=== PATIENT | female | born 1995 | race Caucasian/White ===

== ENCOUNTER 2022-01-07 12:40 | Outpatient (CLI) | payer MEDICAID, SELFPAY ==
[2022-01-07 13:00] VITALS: BMI 25.7
[2022-01-07 13:25] VITALS: BP 119/79; PULSE 78
[2022-01-07 13:29] VITALS: RESP 17
[2022-01-07 13:44] VITALS: TEMP 36.1
[2022-01-07 13:58] LABS: Bilirubin Urine Neg (Negative); Blood Urine Neg (Negative); Glucose Urine UA Norm (Normal); Ketones Urine Negative (Negative); Nitrate Urine Negative (Negative); Protein Urine Neg (Negative); Urine Appearance Hazy (CLEAR); Urine Color Yellow (Yellow); Urobilinogen Urine Norm (Negative); pH Urine 7 (5-7)
[2022-01-07 13:59] LABS: Add Urine Culture? No; Add Urine Microscopic? YES; Bacteria Urine 1+ /hpf; Leukocyte Esterase Urine 2+ (Negative); RBC Urine 0-4 /hpf (0-2); WBC Urine 0-4 /hpf (0-5)
[2022-01-07 15:00] LABS: Bilirubin Urine Neg (Negative); Blood Urine Neg (Negative); Glucose Urine UA Norm (Normal); Ketones Urine Negative (Negative); Leukocyte Esterase Urine Negative (Negative); Nitrate Urine Negative (Negative); Protein Urine Neg (Negative); Specific Gravity, Urine 1.015 (1.005-1.030); Urine Appearance Clear (CLEAR); Urine Color Yellow (Yellow); Urobilinogen Urine Norm (Negative); pH Urine 7 (5-7)
[2022-01-07 15:06] LABS: Add Urine Culture? No; Squamous Epithelial Cell Urine 0-4 /hpf (0-5)
[2022-01-07 15:30] VITALS: BP 119/79; PULSE 78; RESP 18; TEMP 36.1
== END 2022-01-07 15:31 | disposition home or self-care (01) ==
LOC: OPOB 12:45 → OBGYN 12:46
PROVIDERS: Visit Provider Obstetrics & Gynecology
DX: O46.90 Antepartum hemorrhage, unspecified, unspecified trimester (principal); Z3A.00 Weeks of gestation of pregnancy not specified
CPT/HCPCS: 59025; 81001; 99211

== ENCOUNTER → 2022-02-11 16:36 | Outpatient (BNVA) | payer BC, MEDICAID, SELFPAY | PROVIDERS: Visit Provider Obstetrics & Gynecology | DX: Z34.90 Encounter for supervision of normal pregnancy, unspecified, unspecified trimester (principal) | CPT/HCPCS: 80307; 84315; 84443 ==

== ENCOUNTER → 2022-02-16 08:10 | Outpatient (BNVA) | payer BC, MEDICAID, SELFPAY | PROVIDERS: Visit Provider Obstetrics & Gynecology | DX: O09.899 Supervision of other high risk pregnancies, unspecified trimester (principal); Z3A.00 Weeks of gestation of pregnancy not specified | CPT/HCPCS: 81000; 87081 ==

== ENCOUNTER 2022-02-21 04:47 | Outpatient (CLI) | payer BC, MEDICAID, SELFPAY ==
[2022-02-21] VITALS (33 sets, daily range): BP systolic 111–130; BP diastolic 73–87; PULSE 54–96; RESP 15; TEMP 35.9; O2SAT 83–100
[2022-02-21] MEDS: lactated ringers 1,000 ML 999 ML IV (05:55)
[2022-02-21] MEDS: HYDROcodone-acetaminophen 5-325 mg Tablet 1 TAB PO (05:56)
[2022-02-21] MEDS: pantoprazole 40 mg SDV 20 MG IVP (05:56)
[2022-02-21 05:59] LABS: Basophils % 0.4 %; Eosinophils # 0.1 10^3/uL (0.0-0.8); Eosinophils % 1.3 %; Hematocrit 31.1 % (37.0-47.0); Hemoglobin 9.9 g/dL (11.5-15.3); Lymphocytes # 2.4 10^3/uL (0.8-4.8); Lymphocytes % 29.8 %; Mean Corpuscular HGB Conc 31.8 g/dL (30.0-36.0); Mean Corpuscular Hemoglobin 27.7 pg (28.0-34.0); Mean Corpuscular Volume 86.9 fl (81-99); Mean Platelet Volume 11.5 fL (7.4-10.4); Monocytes # 0.8 10^3/uL (0.2-0.9); Monocytes % 9.8 %; Neutrophils # 4.66 10^3/uL (1.8-7.7); Neutrophils % 58.1 %; Nucleated Red Blood Cells % 0 %; Platelet Count 254 10^3/cmm (130-400); Red Blood Count 3.58 10^6/uL (4.1-5.3); Red Cell Distribution Width 13.2 % (12.1-15.1)
[2022-02-21 06:14] LABS: Add Urine Culture? No; Add Urine Microscopic? YES; Bacteria Urine TRACE /hpf; Bilirubin Urine Neg (Negative); Blood Urine Neg (Negative); Glucose Urine UA Norm (Normal); Ketones Urine Negative (Negative); Leukocyte Esterase Urine Negative (Negative); Mucus Urine TRACE /hpf; Nitrate Urine Negative (Negative); Protein Urine Trace (Negative); RBC Urine 0-4 /hpf (0-2); Squamous Epithelial Cell Urine 0-4 /hpf (0-5); Urine Appearance Clear (CLEAR); Urine Color Yellow (Yellow); Urobilinogen Urine Neg (Negative); WBC Urine 0-4 /hpf (0-5); pH Urine 5 (5-7)
[2022-02-21 06:17] LABS: INR 0.93 (0.8-1.2); Partial Thromboplastin Time 23.6 SECONDS (23.9-36.7)
[2022-02-21 06:18] LABS: Platelet Count 254 10^3/cmm (130-400)
[2022-02-21 06:22] LABS: Fibrinogen 320 mg/dL (174-498)
[2022-02-21 06:26] LABS: Urine Creatinine 160 mg/dL (28-217); Urine Protein Random 13 mg/dL
[2022-02-21 06:26] LABS: D Dimer 2.07 ug/mIFEU (0-0.59)
[2022-02-21 06:27] LABS: UPRO/UCREAT Ratio 0.08 mg/mg CR
[2022-02-21 06:27] LABS: Alanine Aminotransferase 7 U/L (0-33); Albumin Level 3.2 g/dL (3.5-5.2); Alkaline Phosphatase 119 IU/L (35-105); Anion Gap 15.7 (5-19); Aspartate Amino Transferase 17 U/L (0-32); Blood Urea Nitrogen 8 mg/dL (6-20); Calcium 8.3 mg/dL (8.5-10.5); Carbon Dioxide 22 mmol/L (22-29); Chloride 105 mmol/L (98-107); Globulin 2.9 g/dL (1.3-4.6); Glomerular Filtration Rate 151.6 mL/min (90-130); Glucose 73 mg/dL (65-115); Osmolality Calculated 285 mOsm/kg (285-295); Potassium 3.7 mmol/L (3.5-5.1); Sodium 139 mmol/L (136-145); Total Bilirubin 0.2 mg/dL (0.15-1.2); Total Protein 6.1 g/dL (6.6-8.7); Uric Acid 4.3 mg/dL (2.4-5.7)
== END 2022-02-21 07:20 | disposition home or self-care (01) ==
LOC: OPOB 04:56 → OBGYN 04:57
PROVIDERS: Visit Provider Obstetrics & Gynecology
DX: O26.899 Other specified pregnancy related conditions, unspecified trimester (principal); Z3A.00 Weeks of gestation of pregnancy not specified; R51.9 Headache, unspecified; R12 Heartburn; G47.9 Sleep disorder, unspecified
CPT/HCPCS: 36415; 59025; 80053; 81001; 82570; 84156; 84550; 85025; 85049; 85378; 85384; 85610; 85730; 99211; C9113

== ENCOUNTER 2022-02-28 10:09 | Outpatient (CLI) | payer BC, MEDICAID, SELFPAY ==
[2022-02-28] VITALS (7 sets, daily range): BP systolic 110–120; BP diastolic 72–78; PULSE 71–88; RESP 18; TEMP 36.1–36.3; BMI 27.4
[2022-02-28 10:57] LABS: Actim Prom Negative
== END 2022-02-28 11:20 | disposition home or self-care (01) ==
LOC: OPOB 10:11 → OBGYN 10:12
PROVIDERS: Visit Provider Obstetrics & Gynecology
DX: O26.899 Other specified pregnancy related conditions, unspecified trimester (principal); Z3A.00 Weeks of gestation of pregnancy not specified; N89.8 Other specified noninflammatory disorders of vagina
CPT/HCPCS: 36415; 59025; 84112; 84315; 99211

== ENCOUNTER 2022-03-08 21:25 | Inpatient (IN) | payer BC, MEDICAID, SELFPAY ==
[2022-03-08] VITALS (7 sets, daily range): BP systolic 123–143; BP diastolic 79–90; PULSE 66–80; RESP 16; BMI 27.4
[2022-03-08 20:48] LABS: Basophils % 0.3 %; Eosinophils # 0.1 10^3/uL (0.0-0.8); Eosinophils % 0.4 %; Hematocrit 35.5 % (37.0-47.0); Hemoglobin 11.2 g/dL (11.5-15.3); Lymphocytes # 2.4 10^3/uL (0.8-4.8); Lymphocytes % 19.9 %; Mean Corpuscular HGB Conc 31.5 g/dL (30.0-36.0); Mean Corpuscular Hemoglobin 27.2 pg (28.0-34.0); Mean Corpuscular Volume 86.2 fl (81-99); Mean Platelet Volume 11.8 fL (7.4-10.4); Neutrophils # 8.43 10^3/uL (1.8-7.7); Neutrophils % 70.8 %; Nucleated Red Blood Cells % 0 %; Platelet Count 279 10^3/cmm (130-400); Red Blood Count 4.12 10^6/uL (4.1-5.3); Red Cell Distribution Width 13.3 % (12.1-15.1); White Blood Count 11.9 10^3/uL (4.0-10.0)
[2022-03-09] VITALS (40 sets, daily range): BP systolic 99–140; BP diastolic 55–85; PULSE 61–114; RESP 17–18; TEMP 36.5–36.9
--- NOTE | 2022-03-09 08:55 | PM.OPHPUD ---
Labor & Delivery H&P Update Date of Procedure: March 09, 2022 Date H&P Performed: 02/28/22 H&P update information: I have reviewed H&P completed within last 30 days, I have examined patient prior to procedure and Changes to prior documentation as noted here Changes to previous documentation: The patient presented with regular contractions and making cervical change. She was not dilated in the office. On admission, she changed from 1-2 cm. Then she changed to 4 cm. She will be admitted for active labor. Admission Diagnosis:
[2022-03-09] MEDS: dextrose 5%-lactated ringers 1,000 ML 125 ML IV ×2 (13:25→21:07)
--- NOTE | 2022-03-09 13:40 | P.PN_ITS ---
Vitals/I&O/Wt Last Vital Signs Temp 98.4 F 03/09/22 13:23 Pulse 90 03/09/22 12:53 Resp 17 03/09/22 08:30 BP 125/77 03/09/22 12:53 O2 Del Method 03/09/22 09:26 Weight last 48 hrs Weight 155 lb Physical Exam Narrative: The patient has continued to make cervical change slowly. She continues to have contractions every 5-7 minutes. Her cervix is now 4.5/75/-2. AROM performed and clear. Patient continues to desire natural labor. Will continue to support her. status is overall reassuring with a category 1 strip. Data : 03/08/22 20:35 A&P Assessment and plan (1) Supervision of other high-risk : AROM wtih clear fluid Still anticipate Status: Acute Attestations Medical Necessity Statement*: She will be here for two nights. Coding Level of Care Code Acute Shipper And Receiving for Sharita Fwd Diagnoses Supervision of other high-risk O09.899
[2022-03-09] MEDS: oxytocin 30 UNIT/500 ML BAG IV (16:23)
[2022-03-09] MEDS: hyDROXYzine 25 mg Capsule 50 MG PO (17:15)
--- NOTE | 2022-03-09 19:18 | PC.NURSE ---
Tera Moya- Wardrobe Custodian at [facility] investigation division was called to see if this certain case was a hotline-able offence. Lesia Guthrie acquisition manager of [facility] made the call and explained that the situation and needed clarification if a hotline call needed to be made but also stated that the pt does have all the necessities at home and has been going to therapy for this current situation. Tera Moya verbalized that this situation does not warrant a hotline call.
[2022-03-09] MEDS: acetaminophen 325 mg Tablet 650 MG PO (19:29)
[2022-03-09] MEDS: fentaNYL 50 mcg/mL INJ 2mL IVP ×3 (20:19→23:54)
[2022-03-09] MEDS: miSOPROStol 200 mcg Tablet 800 MCG PR (22:53)
[2022-03-09] MEDS: methylergonovine 0.2 mg/mL INJ 1 mL IM (22:59)
--- NOTE | 2022-03-09 23:30 | PM.DELIVERY ---
Delivery Note: Date of delivery: March 09, 2022 Pre-delivery diagnoses: [id number], active labor Post-delivery diagnoses: same-delivered, uterine atony Procedure: Delivering Physician: Jailyn Estimated blood loss (mL): 500 Findings: Term female in the KALEN presentation with a single nuchal cord that was reduced at the perineum. Pre-Delivery Course: The patient was admitted in active labor. She was dilated to 4.5 cm and AROM was performe with clear return. The patient progressed to 5 cm. She was having regular, painful contractions, but in spite of that, she had no cervical change. Pitocin was started. The patient progressed quickly. She did not quite have complete cervical dilation when she began to push. Delivery: The head delivered in the KALEN position over an intact perineum under no anesthesia. There was a single nuchal cord which was reduced at the perineum. The nose and mouth were bulb suctioned. The shoulders and body delivered atraumatically. The baby was placed onto the mother's abdomen. The cord was clamped and cut. Cord blood was obtained. The placenta delivered spontaneously. It was inspected and found to be intact. Inspection of the perineum revealed a small second-degree perineal laceration. It was repaired in the usual fashion. There was uterine atony immediately following removal of the placenta. 800 mcg of Cytotec was given rectally. Methergine was given IM and a dose of TXA was given through the IV.. The uterus finally firmed up and bleeding was minimal. Estimated blood loss 500 mL. Apgars on baby were 8 at 1 minute and 9 at 5 minutes. Weight of baby is 6 pounds 3 ounces. Mother and baby were stable post delivery. History History History 2 Term 1 0 Miscarriages/Ectopic 0 Living Children 1 Coding Level of Care Code Acute Agricultural Extension Officer for [facility] Edis
[2022-03-09] MEDS: lidocaine 2% INJ 20 mL INJECTION (23:53)
[2022-03-10] VITALS (67 sets, daily range): BP systolic 99–139; BP diastolic 54–85; PULSE 53–115; RESP 18; TEMP 36.7–39.3; O2SAT 98
[2022-03-10] MEDS: ondansetron 2 mg/ML SDV 2 mL 4 MG IVP (00:34)
[2022-03-10] MEDS: lanolin oint 7 gm 1 APPLIC TOPICAL (02:32)
[2022-03-10] MEDS: acetaminophen 325 mg Tablet 650 MG PO (02:33)
[2022-03-10] MEDS: benzocaine-menthol 78 gm Canister 1 SPRAY TOPICAL (02:33)
[2022-03-10] MEDS: prenatal vitamin Capsule 1 CAP PO (09:20)
[2022-03-10] MEDS: ibuprofen 800 mg tablet PO ×3 (09:20→20:51)
[2022-03-10] MEDS: docusate sodium 100 mg Capsule PO ×2 (09:20→20:51)
[2022-03-10 13:50] LABS: Hematocrit 28.4 % (37.0-47.0); Hemoglobin 9.4 g/dL (11.5-15.3); Mean Corpuscular HGB Conc 33.1 g/dL (30.0-36.0); Mean Corpuscular Hemoglobin 28.1 pg (28.0-34.0); Mean Corpuscular Volume 84.8 fl (81-99); Mean Platelet Volume 11.7 fL (7.4-10.4); Platelet Count 238 10^3/cmm (130-400); Red Blood Count 3.35 10^6/uL (4.1-5.3); Red Cell Distribution Width 13.2 % (12.1-15.1); White Blood Count 14.3 10^3/uL (4.0-10.0)
--- NOTE | 2022-03-10 17:47 | P.PN_ITS ---
Subjective Subjective: The patient is doing well this morning. No concerns. Vitals/I&O/Wt Last Vital Signs Temp 98.2 F 03/10/22 13:40 Pulse 57 L 03/10/22 16:00 Resp 18 03/09/22 23:54 BP 114/66 03/10/22 16:00 O2 Del Method 03/09/22 17:40 03/10/22 03/10/22 03/10/22 06:59 14:59 22:59 Intake Total 1163.167 / 2182.917 Output Total 200 / 200 Balance 963.167 / 1982.917 Physical Exam Narrative: The patient's pain is well controlled. She is tolerating a regular diet. She has no concerns. Const: COMMON NORMALS: no acute distress, average body habitus, patient oriented x3, no limitations, healthy appearing, alert and well nourished GENERAL APPEARANCE: cooperative, comfortable, well kempt and well developed ORIENTATION/CONSCIOUSNESS: Yes awake, Yes oriented to person, Yes oriented to place and Yes oriented to time Resp: COMMON NORMALS: normal respiratory effort EFFORT & INSPECTION: Yes able to speak in complete sentences Extremity: COMMON NORMALS: no calf tenderness Neuro: COMMON NORMALS: patient oriented x3 SENSORIUM/ORIENTATION: Yes alert, Yes oriented to person, Yes oriented to place and Yes oriented to time Psych: APPEARANCE: Yes well kempt Data : 03/10/22 13:39 Attestations Medical Necessity Statement*: the patient had a vaginal delivery. She will be here for 2 midnights. Coding Level of Care Code Acute Electronic Organ Technician for Sharita Randhawa
[2022-03-11 03:43] VITALS: BP 99/57; PULSE 67
[2022-03-11 04:00] VITALS: BP 99/57; PULSE 67; RESP 18; TEMP 36.6
[2022-03-11 07:10] VITALS: BP 103/61; PULSE 60; TEMP 36.4
[2022-03-11] MEDS: docusate sodium 100 mg Capsule PO (08:33)
[2022-03-11] MEDS: ibuprofen 800 mg tablet PO ×2 (08:33→14:51)
[2022-03-11] MEDS: prenatal vitamin Capsule 1 CAP PO (08:33)
--- NOTE | 2022-03-11 14:05 | PM.DCS ---
Discharge Providers Date of Admission: 03/08/22 21:25 Date of Discharge: March 11, 2022 Attending Provider at Admission: Josette Glaser MD Attending Provider at Discharge: Josette Glaser MD Diagnoses at Discharge Discharge Diagnosis (1) Supervision of other high-risk : Status: Acute Reason for Visit Reason for Visit: contractions Hospital Course Hospital Course The patient was admitted in active labor. She continued to make cervical change until she was dilated to 6 cm. Pitocin was started and not too long after, she began making cervical change again. She had spontaneous delivery of a term female . She did well and was ready for discharge on day #2. Physical Exam Narrative: no concerns today. Breast feeding is going well. tolerating a regular diet and ambulating without difficulty. Pain is well controlled. Const: COMMON NORMALS: no acute distress, average body habitus, patient oriented x3, no limitations, healthy appearing, alert and well nourished GENERAL APPEARANCE: cooperative, comfortable, well kempt and well developed ORIENTATION/CONSCIOUSNESS: Yes awake, Yes oriented to person, Yes oriented to place and Yes oriented to time Resp: COMMON NORMALS: normal respiratory effort EFFORT & INSPECTION: Yes able to speak in complete sentences GI: COMMON NORMALS: Soft to palpation and non-tender PALPATION: Yes Soft to palpation Extremity: COMMON NORMALS: no calf tenderness Neuro: COMMON NORMALS: patient oriented x3 SENSORIUM/ORIENTATION: Yes alert, Yes oriented to person, Yes oriented to place and Yes oriented to time Psych: COMMON NORMALS: mental status grossly normal, Normal thought process present, cooperative, normal affect and speech normal APPEARANCE: Yes well kempt SPEECH: Yes normal speech THOUGHT PROCESS: Normal thought process present Discharge Data Studies Completed and Pending Laboratory Results WBC 14.3 10^3/uL (4.0-10.0) H 03/10/22 13:39 RBC 3.35 10^6/uL (4.1-5.3) L 03/10/22 13:39 Hgb 9.4 g/dL (11.5-15.3) L 03/10/22 13:39 Hct 28.4 % (37.0-47.0) L 03/10/22 13:39 MCV 84.8 fl (81-99) 03/10/22 13:39 MCH 28.1 pg (28.0-34.0) 03/10/22 13:39 MCHC 33.1 g/dL (30.0-36.0) 03/10/22 13:39 RDW 13.2 % (12.1-15.1) 03/10/22 13:39 Plt Count 238 10^3/cmm (130-400) 03/10/22 13:39 MPV 11.7 fL (7.4-10.4) H 03/10/22 13:39 Neut % (Auto) 70.8 % 03/08/22 20:35 Lymph % (Auto) 19.9 % 03/08/22 20:35 Eaton % (Auto) 8.0 % 03/08/22 20:35 Eos % (Auto) 0.4 % 03/08/22 20:35 Baso % (Auto) 0.3 % 03/08/22 20:35 Neut # (Auto) 8.43 10^3/uL (1.8-7.7) H 03/08/22 20:35 Lymph # (Auto) 2.4 10^3/uL (0.8-4.8) 03/08/22 20:35 [place] # (Auto) 1.0 10^3/uL (0.2-0.9) H 03/08/22 20:35 Eos # (Auto) 0.1 10^3/uL (0.0-0.8) 03/08/22 20:35 Baso # (Auto) 0.0 10^3/uL (0.0-0.1) 03/08/22 20:35 Nucleated RBC % (auto) 0 % 03/08/22 20:35 Nucleated RBCs # 0.0 /100WBC 03/08/22 20:35 Vitals Last Vital Signs Temp 97.5 F L 03/11/22 07:10 Pulse 60 03/11/22 07:10 Resp 18 03/11/22 04:00 BP 103/61 03/11/22 07:10 Pulse Ox 98 03/10/22 22:31 O2 Del Method 03/10/22 22:31 Discharge Plan Discharge Patient Disposition: Home Condition: Stable Prescriptions: Continued metoclopramide HCl 10 mg tablet 10 mg PO Q6H PRN (Reason: nausea and vomiting) Qty: 120 1RF Drink PO Discharge Orders: Discharge Order (Routine); Ordered 03/11/22 Ordered By: Josette Glaser Patient Instructions: Opioid Safety Discharge Attestations Time Spent in Discharge Care*: less than 30 min Quality Metrics Clinical Quality Measures [ No reported AMI, CVA or VTE this stay] Coding Level of Care Code Acute g DC note Diagnoses Supervision of other high-risk O09.899
[2022-03-11 14:52] VITALS: TEMP 36.6
[2022-03-11 14:53] VITALS: BP 145/62; PULSE 67
[2022-03-11 18:29] VITALS: BP 145/62; PULSE 67; RESP 18; TEMP 36.9
== END 2022-03-11 17:00 | disposition home or self-care (01) | DRG 807 ==
LOC: OPOB 21:25 → OBGYN 21:25
PROVIDERS: Admitting Provider Obstetrics & Gynecology; Visit Provider Obstetrics & Gynecology
DX: O9A.42 Sexual abuse complicating childbirth (principal); Z37.0 Single live birth; O69.2XX0 Labor and delivery complicated by other cord entanglement, with compression, not applicable or unspecified; O70.1 Second degree perineal laceration during delivery; Z3A.38 38 weeks gestation of pregnancy; O75.89 Other specified complications of labor and delivery; F43.10 Post-traumatic stress disorder, unspecified; Z86.16 Personal history of COVID-19
CPT/HCPCS: 36415; 59025; 59409; 85025; 85027; 96372; 99211; J2210; J2405; J3010

== ENCOUNTER 2022-04-23 20:53 | Emergency (ER) | payer BC, MEDICAID, SELFPAY ==
[2022-04-23 20:58] VITALS: BMI 22.6
--- NOTE | 2022-04-23 21:15 | PC.NURSE ---
assumed care of patient at this time. assisted to bathroom for urine collection.
[2022-04-23 21:36] VITALS: RESP 16
--- NOTE | 2022-04-23 21:48 | USR_ITS ---
PROCEDURE INFORMATION: Exam: US Abdomen, Limited; Right Upper Quadrant Exam date and time: 04/23/2022 10:38 PM Age: 26 years old Clinical indication: Abdominal pain; Acute; Additional info: Ruq pain, n/v after eating TECHNIQUE: Imaging protocol: Real time ultrasound of the abdomen with image documentation. Limited exam focused on the right upper quadrant. COMPARISON: US OB limited [facility] 02/18/2022 3:00 PM FINDINGS: Liver: Normal. No masses. Gallbladder: Normal. No gallstones. There is no gallbladder wall thickening. Biliary ducts: Normal. No stones. No dilation. Pancreas: Visualized pancreas is unremarkable. Right kidney: Normal. No mass. No hydronephrosis. US/US gall bladder [id number] IMPRESSION: No acute findings.
--- NOTE | 2022-04-23 21:48 | W.ED.ABDPA2 ---
HPI - Abdominal Pain General: Chief Complaint: Abdominal Pain Stated Complaint: N/V Time Seen by Provider: 04/23/22 21:23 History of Present Illness: Patient is a 26-year-old female comes to the ED with nausea vomiting and abdominal pain and cramping. Patient says symptoms started approximately 2 days ago. Pain is located in the right upper quadrant of abdomen. Pain worsens right after she eats. She endorses having nausea and vomiting after she eats as well. Here in the ED she denies any nausea or vomiting. She says her abdominal pain is very mild and does not need any pain meds. patient is approximately 6 weeks and had vaginal delivery of baby back on March 08, 2022. She had Mirena placed on April 20. Associated Symptoms: Reports nausea and vomiting; Denies chills, constipation, diarrhea, dysuria, fever(s), hematochezia and hematuria Related Data: Date of Last Menstrual Period: 06/11/21 Review of Systems Const: Denies: fever(s), chills or fatigue Eyes: Denies: change in vision or eye discomfort ENMT: Denies: throat pain, odynophagia, nasal discharge or nasal congestion Card: Denies: chest pain, palpitations, edema, swelling of feet/ankles, dyspnea on exertion or orthopnea Resp: Denies: dyspnea, productive cough or non-productive cough GI: Reports: abdominal pain, nausea and vomiting; Denies: diarrhea, constipation or hematochezia : Denies: flank pain, dysuria or hematuria Musc: Denies: neck pain, back pain or extremity swelling Skin/Breast: Denies: rash or new lesions Neuro: Denies: headache(s), numbness in extremities or weakness in extremities PFSH ED PFSH: Medical History No pertinent past medical history Surgical History History of appendectomy 2012 Family History Grandmother Breast cancer, Onset Age: 52 Maternal Ovarian cancer, Onset Age: 52 Maternal Stroke Paternal Mother Diabetes Father Diabetes Denies family history of Colon cancer Heart disease Hypercholesteremia Hypertension Uterine cancer Thyroid disease Social History Smoking and tobacco status: never smoked Female Reproductive History: Date of last menstrual period: 06/11/21 Physical Exam Const: COMMON NORMALS: no acute distress, patient oriented x3, healthy appearing and alert GENERAL APPEARANCE: cooperative and comfortable HENMT: COMMON NORMALS: normocephalic HEAD & SCALP: normocephalic MOUTH: Normal oral and palatal mucosa present THROAT: posterior oropharynx normal and uvula midline Eye: COMMON NORMALS: Equal, round and reactive pupils present and conjunctivae normal GENERAL EYE: appearance normal, both eyes and all related structures CONJUNCTIVA: Yes conjunctivae normal PUPIL: Yes Equal, round and reactive pupils present Neck/C-Spine: COMMON NORMALS: supple GENERAL: Yes normal visual inspection Resp: COMMON NORMALS: normal respiratory effort, No retractions, No use of accessory muscles and clear to auscultation bilaterally AUSCULTATION: clear to auscultation bilaterally Cardio: COMMON NORMALS: regular rate, regular rhythm, S1 normal heart sound present, S2 normal heart sound present, No gallops present (Cardio), No clicks present (Cardio), No murmurs present (Cardio) and Peripheral pulses 2+ throughout RATE: regular rate RHYTHM: regular rhythm HEART SOUNDS: S1 normal heart sound present and S2 normal heart sound present PERIPHERAL PULSES: Peripheral pulses 2+ throughout GI: COMMON NORMALS: Normal to inspection, nondistended, normoactive bowel sounds present, Soft to palpation and no masses PALPATION: Yes Soft to palpation and Yes Tenderness to palpation present (GI) Details: RUQ : COMMON NORMALS: Yes no CVA tenderness BLADDER/KIDNEY EXAM: Yes no CVA tenderness Back/Pelvis: COMMON NORMALS: no CVA tenderness Extremity: COMMON NORMALS: normal to inspection Neuro: COMMON NORMALS: patient oriented x3 SENSORIUM/ORIENTATION: Yes alert GAIT: Yes Normal gait present Skin: GENERAL SKIN EXAM: dry skin Course Vital Signs: Vital signs: Vital Signs Pulse Rate 79 04/23/22 23:00 Respiratory Rate 16 04/23/22 23:00 Blood Pressure 118/78 04/23/22 23:30 Pulse Oximetry 99 04/23/22 23:00 Oxygen Delivery Me thod 04/23/22 20:58 MDM - Abdominal Pain Medical Decision Making Patient is a 26-year-old female comes to the ED with nausea vomiting and abdominal pain and cramping. Patient says symptoms started approximately 2 days ago. Pain is located in the right upper quadrant of abdomen. Pain worsens right after she eats. She endorses having nausea and vomiting after she eats as well. patient is approximately 6 weeks and had vaginal delivery of baby back on March 08, 2022. She had Mirena placed on April 20. Vitals are stable. Patient appears nontoxic and in no acute distress or pain. She does have some right upper quadrant abdominal tenderness upon palpation. Rest of exam is benign. Labs are unremarkable. Ultrasound of right upper quadrant shows no acute findings. Given patient's clinical appearance labs and imaging she is stable for discharge home. She is diagnosed with biliary colic symptoms and told to follow-up with her PCP within the next week for reevaluation. Return ED precautions given. Patient understood and agreed with plan. Lab Data I reviewed the patient's lab results. : 04/23/22 21:46 04/23/22 21:46 Labs/Radiology: Radiology Impressions Gallbladder Ultrasound 04/23/22 21:48 IMPRESSION: No acute findings. Laboratory Results WBC 7.7 10^3/uL (4.0-10.0) 04/23/22 21:46 RBC 3.78 10^6/uL (4.1-5.3) L 04/23/22 21:46 Hgb 10.5 g/dL (11.5-15.3) L 04/23/22 21:46 Hct 32.8 % (37.0-47.0) L 04/23/22 21:46 MCV 86.8 fl (81-99) 04/23/22 21:46 MCH 27.8 pg (28.0-34.0) L 04/23/22 21:46 MCHC 32.0 g/dL (30.0-36.0) 04/23/22 21:46 RDW 15.2 % (12.1-15.1) H 04/23/22 21:46 Plt Count 350 10^3/cmm (130-400) 04/23/22 21:46 MPV 10.7 fL (7.4-10.4) H 04/23/22 21:46 Neut % (Auto) 58.9 % 04/23/22 21:46 Lymph % (Auto) 30.2 % 04/23/22 21:46 Glynn % (Auto) 8.8 % 04/23/22 21:46 Eos % (Auto) 1.2 % 04/23/22 21:46 Baso % (Auto) 0.6 % 04/23/22 21:46 Neut # (Auto) 4.54 10^3/uL (1.8-7.7) 04/23/22 21:46 Lymph # (Auto) 2.3 10^3/uL (0.8-4.8) 04/23/22 21:46 Glynn # (Auto) 0.7 10^3/uL (0.2-0.9) 04/23/22 21:46 Eos # (Auto) 0.1 10^3/uL (0.0-0.8) 04/23/22 21:46 Baso # (Auto) 0.1 10^3/uL (0.0-0.1) 04/23/22 21:46 Nucleated RBC % (auto) 0 % 04/23/22 21:46 Nucleated RBCs # 0.0 /100WBC 04/23/22 21:46 Sodium 140 mmol/L (136-145) 04/23/22 21:46 Potassium 3.8 mmol/L (3.5-5.1) 04/23/22 21:46 Chloride 104 mmol/L (98-107) 04/23/22 21:46 Carbon Dioxide 24 mmol/L (22-29) 04/23/22 21:46 Anion Gap 15.8 (5-19) 04/23/22 21:46 BUN 12 mg/dL (6-20) 04/23/22 21:46 Creatinine 0.8 mg/dL (0.5-0.9) 04/23/22 21:46 GFR Calculation 88.1 mL/min (90-130) L 04/23/22 21:46 Glucose 84 mg/dL (65-115) 04/23/22 21:46 Calculated Osmolality 289 mOsm/kg (285-295) 04/23/22 21:46 Calcium 9.0 mg/dL (8.5-10.5) 04/23/22 21:46 Total Bilirubin 0.2 mg/dL (0.15-1.2) 04/23/22 21:46 AST 22 U/L (0-32) 04/23/22 21:46 ALT 15 U/L (0-33) 04/23/22 21:46 Alkaline Phosphatase 87 U/L (35-105) 04/23/22 21:46 Total Protein 7.3 g/dL (6.6-8.7) 04/23/22 21:46 Albumin 4.0 g/dL (3.5-5.2) 04/23/22 21:46 Globulin 3.3 g/dL (1.3-4.6) 04/23/22 21:46 Urine Color Yellow (Yellow) 04/23/22 21:49 Urine Appearance Clear (CLEAR) 04/23/22 21:49 Urine pH 5 (5-7) 04/23/22 21:49 Ur Specific [place] 1.025 (1.005-1.030) 04/23/22 21:49 Urine Protein Neg (Negative) 04/23/22 21:49 Urine Glucose (UA) Norm (Normal) 04/23/22 21:49 Urine Ketones 2+ (Negative) H 04/23/22 21:49 Urine Blood Neg (Negative) 04/23/22 21:49 Urine Nitrate Negative (Negative) 04/23/22 21:49 Urine Bilirubin Neg (Negative) 04/23/22 21:49 Urine Urobilinogen Neg mg/dL (Negative) 04/23/22 21:49 Ur Leukocyte Esterase 1+ (Negative) H 04/23/22 21:49 Urine RBC 0-4 /hpf (0-2) H 04/23/22 21:49 Urine WBC 5-10 /hpf (0-5) H 04/23/22 21:49 Ur Squamous Epith Cells 5-10 /hpf (0-5) H 04/23/22 21:49 Amorphous Sediment Not Reportable 04/23/22 21:49 Urine Bacteria Trace /hpf (NONE) 04/23/22 21:49 Urine Mucus 1+ /hpf 04/23/22 21:49 Discharge Plan Discharge Patient Disposition: Home Clinical Impression: Biliary colic symptom Condition: Stable Prescriptions: No Action Mirena 20 mcg/24 hours (7 yrs) 52 mg intrauterine device 1 device intrauterine ONCE Qty: 1 0RF povidone-iodine [Betadine Swabsticks] 10 % swab 1 applic topical ONCE Qty: 1 0RF No Known Home Medications Discharge Orders: Discharge ED (Routine); Ordered 04/24/22 Ordered By: Huy Weber Discharge Diet: Advance as tolerated Discharge Activity: Increase activity as tolerated Patient Instructions: Biliary Colic (ED) Activity Restrictions/Additional Instructions: Follow-up with medical provider as directed in the next 7 to 10 days for reevaluation. Take medications as prescribed. Return to the ER or your medical provider if condition worsens. Please read and understand discharge instructions. Thank you for choosing [facility] for your healthcare needs today. Please realize this is an emergency room and that we are providing you with a medical screening exam and this may not be complete and all inclusive of all the testing and or work up that you may need to determine your ailment or severity of your illness. It is very important that you follow up as instructed or that you return to the Emergency Department should you have concerns or if your condition changes or worsens in any way. Coding Level of Care Code ED Hvac Engineering Technician for Sharita Fwkinsey Exam Comprehensive
[2022-04-23 22:03] LABS: Basophils # 0.1 10^3/uL (0.0-0.1); Basophils % 0.6 %; Eosinophils # 0.1 10^3/uL (0.0-0.8); Eosinophils % 1.2 %; Hematocrit 32.8 % (37.0-47.0); Hemoglobin 10.5 g/dL (11.5-15.3); Lymphocytes # 2.3 10^3/uL (0.8-4.8); Lymphocytes % 30.2 %; Mean Corpuscular Hemoglobin 27.8 pg (28.0-34.0); Mean Corpuscular Volume 86.8 fl (81-99); Mean Platelet Volume 10.7 fL (7.4-10.4); Monocytes # 0.7 10^3/uL (0.2-0.9); Monocytes % 8.8 %; Neutrophils # 4.54 10^3/uL (1.8-7.7); Neutrophils % 58.9 %; Nucleated Red Blood Cells % 0 %; Platelet Count 350 10^3/cmm (130-400); Red Blood Count 3.78 10^6/uL (4.1-5.3); Red Cell Distribution Width 15.2 % (12.1-15.1); White Blood Count 7.7 10^3/uL (4.0-10.0)
[2022-04-23 22:07] VITALS: BP 133/75; RESP 16; O2SAT 98
[2022-04-23 22:18] LABS: Alanine Aminotransferase 15 U/L (0-33); Alkaline Phosphatase 87 U/L (35-105); Anion Gap 15.8 (5-19); Aspartate Amino Transferase 22 U/L (0-32); Blood Urea Nitrogen 12 mg/dL (6-20); Carbon Dioxide 24 mmol/L (22-29); Chloride 104 mmol/L (98-107); Globulin 3.3 g/dL (1.3-4.6); Glomerular Filtration Rate 88.1 mL/min (90-130); Glucose 84 mg/dL (65-115); Osmolality Calculated 289 mOsm/kg (285-295); Potassium 3.8 mmol/L (3.5-5.1); Sodium 140 mmol/L (136-145); Total Bilirubin 0.2 mg/dL (0.15-1.2); Total Protein 7.3 g/dL (6.6-8.7)
[2022-04-23 22:30] VITALS: BP 117/78
[2022-04-23 22:33] LABS: Add Urine Microscopic? YES; Bilirubin Urine Neg (Negative); Blood Urine Neg (Negative); Glucose Urine UA Norm (Normal); Ketones Urine 2+ (Negative); Leukocyte Esterase Urine 1+ (Negative); Nitrate Urine Negative (Negative); Protein Urine Neg (Negative); Specific Gravity, Urine 1.025 (1.005-1.030); Urine Appearance Clear (CLEAR); Urine Color Yellow (Yellow); Urobilinogen Urine Neg (Negative); pH Urine 5 (5-7)
[2022-04-23 22:34] LABS: Add Urine Culture? No; Bacteria Urine TRACE /hpf; Mucus Urine 1+ /hpf; RBC Urine 0-4 /hpf (0-2)
[2022-04-23 23:00] VITALS: BP 118/69; PULSE 79; RESP 16; O2SAT 99
[2022-04-23 23:30] VITALS: BP 118/78
[2022-04-24 00:30] VITALS: BP 124/79; PULSE 74; RESP 17; O2SAT 98
== END 2022-04-24 00:30 | disposition home or self-care (01) ==
PROVIDERS: Emergency Medicine; Emergency Provider Physician Assistant
DX: K80.50 Calculus of bile duct without cholangitis or cholecystitis without obstruction (principal)
CPT/HCPCS: 76705; 80053; 81001; 85025; 99284

== ENCOUNTER → 2022-05-18 18:46 | Outpatient (BNVA) | payer BC, MEDICAID, SELFPAY | PROVIDERS: Visit Provider Emergency Medicine | DX: R50.9 Fever, unspecified (principal); B34.9 Viral infection, unspecified | CPT/HCPCS: 87400 ==

== ENCOUNTER 2022-10-10 16:52 | Emergency (ER) | payer SELFPAY ==
[2022-10-10 17:05] VITALS: BP 119/84; PULSE 66; RESP 14; TEMP 37.1; O2SAT 100
[2022-10-10 19:43] LABS: Basophils # 0.1 10^3/uL (0.0-0.1); Basophils % 0.7 %; Eosinophils # 0.1 10^3/uL (0.0-0.8); Eosinophils % 1.2 %; Hematocrit 45.2 % (37.0-47.0); Hemoglobin 14.2 g/dL (11.5-15.3); Lymphocytes # 2.6 10^3/uL (0.8-4.8); Lymphocytes % 34.9 %; Mean Corpuscular HGB Conc 31.4 g/dL (30.0-36.0); Mean Corpuscular Hemoglobin 27.6 pg (28.0-34.0); Mean Corpuscular Volume 87.8 fl (81-99); Mean Platelet Volume 10.1 fL (7.4-10.4); Monocytes # 0.6 10^3/uL (0.2-0.9); Monocytes % 7.5 %; Neutrophils # 4.13 10^3/uL (1.8-7.7); Neutrophils % 55.6 %; Nucleated Red Blood Cells % 0 %; Platelet Count 432 10^3/cmm (130-400); Red Blood Count 5.15 10^6/uL (4.1-5.3); Red Cell Distribution Width 14.3 % (12.1-15.1); White Blood Count 7.4 10^3/uL (4.0-10.0)
[2022-10-10 20:02] LABS: Alanine Aminotransferase 14 U/L (0-33); Albumin Level 4.5 g/dL (3.5-5.2); Alkaline Phosphatase 109 U/L (35-105); Anion Gap 15.8 (5-19); Aspartate Amino Transferase 22 U/L (0-32); Blood Urea Nitrogen 8 mg/dL (6-20); Calcium 8.9 mg/dL (8.5-10.5); Carbon Dioxide 25 mmol/L (22-29); Chloride 104 mmol/L (98-107); Creatinine Clr Calc Pharmacy 135.0235; Globulin 3.7 g/dL (1.3-4.6); Glomerular Filtration Rate 121.8 mL/min (90-130); Glucose 91 mg/dL (65-115); HCG, Serum Qual Negative (Negative); Osmolality Calculated 290 mOsm/kg (285-295); Potassium 3.8 mmol/L (3.5-5.1); Sodium 141 mmol/L (136-145); Total Bilirubin 0.3 mg/dL (0.15-1.2); Total Protein 8.2 g/dL (6.6-8.7)
--- NOTE | 2022-10-10 20:18 | ECG_ITS ---
[facility] Test Date: 2022-10-10 Pat Name: Светлана Pacheco Department: Room: Gender: Female Petal Cutter: : 1995 Requested By: Helena Bashir Order Number: [id number] Jenniffer MD: Chiquis Amin M.D. Measurements Intervals [place] Rate: 65 P: 5 AK: 125 QRS: 65 QRSD: 110 T: 42 QT: 397 QTc: 414 Interpretive Statements SINUS RHYTHM POSSIBLE RIGHT VENTRICULAR CONDUCTION DELAY [RSR (QR) IN V1/V2] Compared to ECG 08/07/2014 14:50:11 Indeterminate axis no longer present Electronically Signed On 10-12-2022 0:21:34 CDT by Chiquis Amin M.D. [email or web address] of delta regional medical [email or web address] [id number]
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
[2022-10-10] MEDS: LORazepam 0.5 mg Tablet PO (20:57)
== END 2022-10-10 21:04 | disposition home or self-care (01) ==
PROVIDERS: Emergency Medicine; Emergency Provider Nurse Practitioner Family
DX: R00.2 Palpitations (principal); R42 Dizziness and giddiness; F41.9 Anxiety disorder, unspecified
CPT/HCPCS: 36415; 80053; 84703; 85025; 93005; 99284

== ENCOUNTER 2022-12-25 23:49 | Emergency (ER) | payer MEDICAID, SELFPAY ==
[2022-12-25 23:55] VITALS: BP 138/98; PULSE 81; RESP 14; TEMP 36.8; O2SAT 98; BMI 24.0
--- NOTE | 2022-12-25 23:55 | ECG_ITS ---
[facility] Test Date: 2022-12-26 Pat Name: Светлана Pacheco Department: Room: Gender: Female Pulley Man: : 1995 Requested By: Helena Bashir Order Number: [id number] Jenniffer MD: Dahiana Weinstein M.D. Measurements Intervals [place] Rate: 76 P: 21 AK: 147 QRS: 51 QRSD: 108 T: 27 QT: 387 QTc: 437 Interpretive Statements SINUS RHYTHM INCOMPLETE RIGHT BUNDLE BRANCH BLOCK [90+ ms QRS DURATION, TERMINAL R IN V1/V2, 40+ ms S IN I/aVL/V4/V5/V6] Compared to ECG 10/10/2022 20:18:37 Incomplete right bundle-branch block now present Electronically Signed On 12-26-2022 10:58:39 CDT by Dahiana Weinstein M.D. [id number] f
--- NOTE | 2022-12-25 23:55 | XRR_ITS ---
PROCEDURE INFORMATION: Exam: XR Chest Exam date and time: 12/26/2022 12:17 AM Age: 27 years old Clinical indication: Pain; Chest pressure; Additional info: Cp TECHNIQUE: Imaging protocol: Radiologic exam of the chest. Views: 1 view. COMPARISON: No relevant prior studies available. FINDINGS: Lungs: Unremarkable. No consolidation. Pleural spaces: Unremarkable. No pleural effusion. No pneumothorax. Heart/Mediastinum: Unremarkable. No cardiomegaly. Bones/joints: Unremarkable. XR/XR chest 1V portable [id number] IMPRESSION: No acute findings.
--- NOTE | 2022-12-26 00:05 | ECG_ITS ---
[facility] Test Date: 2022-12-26 Pat Name: Светлана Pacheco Department: Room: Gender: Female Sap Basis Consultant: : 1995 Requested By: Helena Bashir Order Number: [id number] Jenniffer MD: Dahiana Weinstein M.D. Measurements Intervals [place] Rate: 76 P: 21 IN: 147 QRS: 51 QRSD: 108 T: 27 QT: 387 QTc: 437 Interpretive Statements SINUS RHYTHM INCOMPLETE RIGHT BUNDLE BRANCH BLOCK [90+ ms QRS DURATION, TERMINAL R IN V1/V2, 40+ ms S IN I/aVL/V4/V5/V6] Compared to ECG 10/10/2022 20:18:37 Incomplete right bundle-branch block now present Electronically Signed On 12-26-2022 10:58:47 CDT by Dahiana Weinstein M.D. [id number] f
[2022-12-26 00:17] VITALS: BP 140/110; PULSE 81; RESP 18; O2SAT 97
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
[2022-12-26 00:18] VITALS: RESP 18
[2022-12-26] MEDS: morphine 4 mg/mL SDV 1 mL IVP (00:18)
[2022-12-26 00:19] VITALS: O2SAT 98
[2022-12-26] MEDS: ondansetron 2 mg/ML SDV 2 mL 4 MG IVP (00:19)
[2022-12-26 00:22] LABS: Basophils % 0.4 %; Eosinophils # 0.1 10^3/uL (0.0-0.8); Eosinophils % 0.9 %; Hematocrit 43.4 % (37.0-47.0); Hemoglobin 13.9 g/dL (11.5-15.3); Lymphocytes # 2.4 10^3/uL (0.8-4.8); Mean Corpuscular Hemoglobin 28.7 pg (28.0-34.0); Mean Corpuscular Volume 89.5 fl (81-99); Mean Platelet Volume 10.6 fL (7.4-10.4); Monocytes # 0.8 10^3/uL (0.2-0.9); Monocytes % 8.8 %; Neutrophils # 5.65 10^3/uL (1.8-7.7); Neutrophils % 62.8 %; Nucleated Red Blood Cells % 0 %; Platelet Count 353 10^3/cmm (130-400); Red Blood Count 4.85 10^6/uL (4.1-5.3); Red Cell Distribution Width 13.6 % (12.1-15.1)
[2022-12-26 00:35] VITALS: BP 137/97; PULSE 88; RESP 18; O2SAT 95
[2022-12-26 00:40] LABS: HCG, Serum Qual Negative (Negative)
[2022-12-26 00:47] LABS: Troponin(5th) Baseline 6 ng/L (0-10)
[2022-12-26 00:48] LABS: Alanine Aminotransferase 20 U/L (0-33); Albumin Level 4.5 g/dL (3.5-5.2); Alkaline Phosphatase 92 U/L (35-105); Anion Gap 13.8 (5-19); Aspartate Amino Transferase 24 U/L (0-32); Blood Urea Nitrogen 12 mg/dL (6-20); Calcium 8.8 mg/dL (8.5-10.5); Carbon Dioxide 23 mmol/L (22-29); Chloride 102 mmol/L (98-107); Creatinine Clr Calc Pharmacy 131.7389; Globulin 3.1 g/dL (1.3-4.6); Glomerular Filtration Rate 121.8 mL/min (90-130); Glucose 87 mg/dL (65-115); Lipase 22 U/L (13-60); Osmolality Calculated 279 mOsm/kg (285-295); Potassium 3.8 mmol/L (3.5-5.1); Sodium 135 mmol/L (136-145); Total Bilirubin 0.4 mg/dL (0.15-1.2); Total Protein 7.6 g/dL (6.6-8.7)
[2022-12-26 01:09] VITALS: BP 122/92; PULSE 64; RESP 18; O2SAT 96
--- NOTE | 2022-12-29 13:18 | DCPLANNER ---
Addendum entered by Doreen Ashton 02/23/23 12:08: This appointment was cancelled Addendum entered by Doreen Ashton 12/29/22 14:41: Patient called case management coordinator back, she stated that she would like help in getting established with a primary care physician. manager pacu called [facility], a follow up appointment was scheduled for , January 19, 2023 at 1:[address] Krause at [facility] - patient is aware of appointment. Original Note: manager pacu called patient due to no primary care physician - no answer at this time.
== END 2022-12-26 01:17 | disposition home or self-care (01) ==
PROVIDERS: Emergency Provider Emergency Medicine
DX: R07.9 Chest pain, unspecified (principal)
CPT/HCPCS: 71045; 80053; 83690; 84484; 84703; 85025; 93005; 96374; 96375; 99285; J2270; J2405

== ENCOUNTER 2023-03-16 09:07 | Emergency (ER) | payer SELFPAY ==
[2023-03-16] VITALS (7 sets, daily range): BP systolic 105–133; BP diastolic 61–92; PULSE 58–127; RESP 16–19; TEMP 37.2; O2SAT 96–100; BMI 24.7
[2023-03-16 09:51] LABS: Basophils % 0.6 %; Eosinophils # 0.1 10^3/uL (0.0-0.8); Eosinophils % 1.7 %; Lymphocytes # 1.7 10^3/uL (0.8-4.8); Lymphocytes % 24.9 %; Mean Corpuscular HGB Conc 33.3 g/dL (30-55); Mean Corpuscular Hemoglobin 29.5 pg (27-33); Mean Corpuscular Volume 88.6 fl (85-98); Monocytes # 0.6 10^3/uL (0.2-0.9); Monocytes % 8.3 %; Neutrophils # 4.49 10^3/uL (1.8-7.7); Neutrophils % 64.2 %; Nucleated Red Blood Cells % 0 %; Platelet Count 285 10^3/cmm (157-399); Red Blood Count 4.74 10^6/uL (3.85-5.65); Red Cell Distribution Width 13.4 % (12.1-15.1); White Blood Count 6.99 10^3/uL (3.29-11.43)
--- NOTE | 2023-03-16 09:53 | CT_ITS ---
WS: [id number] CT HEAD NONCONTRAST HISTORY: altered mental status TECHNIQUE: Contiguous axial imaging performed through the brain in 2.5 mm imaging. Bone and soft tiss ue windows. Sagittal and coronal reformats reviewed. All CT scans at [facility] use at least one of these dose optimization techniques: automated exposure control; mA and/or kV adjustment per pa tient size (includes targeted exams where dose is matched to clinical indication); or iterative recon struction. DLP: 1031.99 mGy.cm COMPARISON: None available. No acute intracranial hemorrhage, midline shift or mass effect. No atrophy or prior infarcts or herniation. Ventricles: Normal size with no hydrocephalus. Paranasal sinuses: As visualized are clear. Mastoid air cells: Well pneumatized. Calvarium and scalp: Skull is intact with no soft tissue edema or swelling. IMPRESSION: Negative head CT.
[2023-03-16 10:05] LABS: HCG, Serum Qual Negative (Negative)
[2023-03-16 10:22] LABS: Alanine Aminotransferase 30 U/L (0-33); Albumin Level 4.4 g/dL (3.5-5.2); Alkaline Phosphatase 80 U/L (35-105); Anion Gap 13.5 (5-19); Aspartate Amino Transferase 36 U/L (0-32); Blood Urea Nitrogen 7 mg/dL (6-20); Calcium 8.8 mg/dL (8.5-10.5); Carbon Dioxide 24 mmol/L (22-29); Chloride 104 mmol/L (98-107); Creatine Phosphokinase 87 U/L (26-192); Globulin 3.3 g/dL (1.3-4.6); Glomerular Filtration Rate 87.4 mL/min (90-130); Glucose 97 mg/dL (65-115); Osmolality Calculated 282 mOsm/kg (285-295); Potassium 4.5 mmol/L (3.5-5.1); Salicylate 4.6 mg/dL (3-10); Sodium 137 mmol/L (136-145); Thyroid Stimulating Hormone 0.77 uIU/mL (0.27-4.20); Total Bilirubin 0.4 mg/dL (0.15-1.2); Total Protein 7.7 g/dL (6.6-8.7)
--- NOTE | 2023-03-16 10:23 | PC.NURSE ---
PT TAKEN TO CT
[2023-03-16] MEDS: sodium chloride 0.9% 1,000 ML 999 ML IV (10:52)
--- NOTE | 2023-03-16 10:56 | ECG_ITS ---
[facility] Test Date: 2023-03-16 Pat Name: Светлана Nassar Department: Room: Gender: Female Microphone Operator: [place]: 1995 Requested By: Michelle Beckett Order Number: [id number] Jenniffer MD: Mode Sharma M.D. Measurements Intervals [place] Rate: 71 P: 61 LA: 153 QRS: 61 QRSD: 108 T: 37 QT: 395 QTc: 432 Interpretive Statements SINUS RHYTHM POSSIBLE LEFT ATRIAL ENLARGEMENT [-0.1mV P-WAVE IN V1/V2] LOW QRS VOLTAGE IN PRECORDIAL LEADS [QRS DEFLECTION < 1.0 mV IN CHEST LEADS] INCOMPLETE RIGHT BUNDLE BRANCH BLOCK [90+ ms QRS DURATION, TERMINAL R IN V1/V2, 40+ ms S IN I/aVL/V4/V5/V6] No previous ECG available for comparison Electronically Signed On 03-16-2023 13:22:27 CDT by Mode Sharma M.D. [id number]
[2023-03-16 11:23] LABS: Troponin(5th) Baseline 6 ng/L (0-10)
[2023-03-16 11:39] LABS: Urine Appearance Hazy (CLEAR); Urine Color Yellow (Yellow); pH Urine 7 (5-7)
[2023-03-16 11:40] LABS: Add Urine Culture? No; Add Urine Microscopic? YES; Amorphous Sediment Urine 2+ /hpf; Bacteria Urine TRACE /hpf; Bilirubin Urine Neg (Negative); Blood Urine Neg (Negative); Glucose Urine UA Norm (Normal); Ketones Urine Negative (Negative); Leukocyte Esterase Urine 1+ (Negative); Mucus Urine 1+ /hpf; Nitrate Urine Negative (Negative); Protein Urine Neg (Negative); RBC Urine 0-4 /hpf (0-2); Specific Gravity, Urine 1.005 (1.005-1.030); Squamous Epithelial Cell Urine 25-40 /hpf (0-5); Urobilinogen Urine Norm (Negative)
[2023-03-16 11:42] LABS: Amphetamines Screen Urine Negative (Negative); Barbiturates Screen Urine Negative (Negative); Benzodiazepines Screen Urine Negative (Negative); Cocaine Screen Urine Negative (Negative); Opiate Screen Urine Negative (Negative); PCP Screen Urine Negative (Negative); THC Screen Urine Positive (Negative)
--- NOTE | 2023-03-16 13:06 | ECG_ITS ---
[facility] Test Date: 2023-03-16 Pat Name: Светлана Nassar Department: Room: Gender: Female Rental Management Trainee: [place]: 1995 Requested By: Michelle Beckett Order Number: [id number] Jenniffer MD: Mode Sharma M.D. Measurements Intervals [place] Rate: 64 P: 63 [place]: 153 QRS: 70 QRSD: 104 T: 35 QT: 415 QTc: 431 Interpretive Statements SINUS RHYTHM POSSIBLE LEFT ATRIAL ENLARGEMENT [-0.1mV P-WAVE IN V1/V2] LOW QRS VOLTAGE IN PRECORDIAL LEADS [QRS DEFLECTION < 1.0 mV IN CHEST LEADS] INCOMPLETE RIGHT BUNDLE BRANCH BLOCK [90+ ms QRS DURATION, TERMINAL R IN V1/V2, 40+ ms S IN I/aVL/V4/V5/V6] Compared to ECG 03/16/2023 10:59:51 No significant changes Electronically Signed On 03-16-2023 13:22:37 CDT by Mode Sharma M.D. [id number]
[2023-03-16 13:10] LABS: Troponin 5 2HR 6 ng/L (0-10); Troponin 5 2HR Delta 0 ABS# (0-10)
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
[2023-03-16] MEDS: ketorolac 30 mg/mL INJ IVP (14:06)
[2023-03-16 16:28] LABS: Troponin 5 6HR Delta 0 ng/L (0-12)
--- NOTE | 2023-03-16 17:00 | PC.NURSE ---
THIS NURSE AND VENUE ATTENDANT VAN DISCUSSED IMPORTANCE OF RECEIVING INPATIENT TX WITH PT AND FAMILY. PT AND FAMILY STATED THEY WOULD LIKE A FEW MINUTES TO DISCUSS SITUATION.
[2023-03-16] MEDS: acetaminophen 500 mg Tablet 1000 MG PO (17:08)
--- NOTE | 2023-03-16 18:35 | PC.NURSE ---
PT AND PT FAMILY STATED THEY WOULD LIKE TO LEAVE AMA. DR. ARMSTRONG CALLED AND NOTIFIED. DR. ARMSTRONG GAVE VERBAL OKAY TO ALLOW PT TO LEAVE AMA.
== END 2023-03-16 18:46 | disposition left against medical advice (07) ==
PROVIDERS: Emergency Provider Nurse Practitioner Family
DX: R41.82 Altered mental status, unspecified (principal); T43.215A Adverse effect of selective serotonin and norepinephrine reuptake inhibitors, initial encounter
CPT/HCPCS: 36415; 70450; 80053; 80306; 80307; 81001; 82550; 84443; 84484; 84703; 85025; 93005; 96361; 96374; 99285; J1885; J7030

== ENCOUNTER 2023-06-19 14:02 | Emergency (ER) | payer SELFPAY ==
--- NOTE | 2023-06-19 14:04 | XR_ITS ---
WS: [id number] PORTABLE CHEST HISTORY: cp COMPARISON: 12/26/2022 Lungs are clear and well expanded. No pleural effusion or pneumothorax. Cardiac size: Normal. Mediastinum/Aorta: Normal mediastinum. No osseous abnormality seen. IMPRESSION: Unremarkable portable chest.
--- NOTE | 2023-06-19 14:09 | ECG_ITS ---
[facility] Test Date: 2023-06-19 Pat Name: Светлана Nassar Department: Room: Gender: Female Weld Fitter: : 1995 Requested By: Helena Bashir Order Number: [id number] Jenniffer MD: Dahiana Weinstein M.D. Measurements Intervals [place] Rate: 74 P: 74 WI: 149 QRS: 80 QRSD: 107 T: 73 QT: 377 QTc: 418 Interpretive Statements SINUS RHYTHM INCOMPLETE RIGHT BUNDLE BRANCH BLOCK [90+ ms QRS DURATION, TERMINAL R IN V1/V2, 40+ ms S IN I/aVL/V4/V5/V6] Compared to ECG 03/16/2023 13:06:00 No significant changes Electronically Signed On 06-19-2023 15:01:29 CORPORATE DRIVER by Dahiana Weinstein M.D. [email or web address]
[2023-06-19 14:12] VITALS: BP 125/89; PULSE 73; RESP 18; TEMP 36.8; O2SAT 100; BMI 24.7
[2023-06-19 14:39] LABS: Basophils % 0.4 %; Eosinophils # 0.1 10^3/uL (0.0-0.8); Eosinophils % 0.7 %; Hematocrit 41.7 % (36-47); Lymphocytes # 1.6 10^3/uL (0.8-4.8); Lymphocytes % 23.7 %; Mean Corpuscular HGB Conc 32.9 g/dL (30-55); Mean Corpuscular Hemoglobin 30.4 pg (27-33); Mean Corpuscular Volume 92.5 fl (85-98); Mean Platelet Volume 10.6 fL (7.4-10.4); Monocytes # 0.5 10^3/uL (0.2-0.9); Monocytes % 7.1 %; Neutrophils # 4.55 10^3/uL (1.8-7.7); Neutrophils % 67.8 %; Nucleated Red Blood Cells % 0 %; Platelet Count 334 10^3/cmm (157-399); Red Blood Count 4.51 10^6/uL (3.85-5.65); Red Cell Distribution Width 12.7 % (12.1-15.1); White Blood Count 6.72 10^3/uL (3.29-11.43)
[2023-06-19 15:01] LABS: Troponin(5th) Baseline < 6 ng/L (0-10)
[2023-06-19 15:24] LABS: Alanine Aminotransferase 12 U/L (0-33); Albumin Level 4.6 g/dL (3.5-5.2); Alkaline Phosphatase 74 U/L (35-105); Anion Gap 13.8 (5-19); Aspartate Amino Transferase 16 U/L (0-32); Blood Urea Nitrogen 8 mg/dL (6-20); Calcium 9.7 mg/dL (8.5-10.5); Carbon Dioxide 23 mmol/L (22-29); Chloride 104 mmol/L (98-107); Creatinine Clr Calc Pharmacy 128.6164; Globulin 3.2 g/dL (1.3-4.6); Glomerular Filtration Rate 121.8 mL/min (90-130); Glucose 98 mg/dL (65-115); Osmolality Calculated 282 mOsm/kg (285-295); Potassium 3.8 mmol/L (3.5-5.1); Sodium 137 mmol/L (136-145); Total Bilirubin 0.3 mg/dL (0.15-1.2); Total Protein 7.8 g/dL (6.6-8.7)
--- NOTE | 2023-06-19 15:37 | PC.PHAR ---
pt states she no longer takes any prescription medications-pt states she hasnt taken prozac 10mg daily and pristiq 25mg hs since apr 2023-pt states she also had her mirena taken out in apr 2023
[2023-06-19 16:08] LABS: HCG Qualitative Urine. Negative (Negative)
[2023-06-19 16:09] VITALS: BP 124/85; PULSE 80; O2SAT 98
[2023-06-19 16:18] LABS: Add Urine Microscopic? YES; Bilirubin Urine Neg (Negative); Blood Urine 2+ (Negative); Glucose Urine UA Norm (Normal); Ketones Urine Negative (Negative); Leukocyte Esterase Urine Negative (Negative); Nitrate Urine Negative (Negative); Protein Urine Neg (Negative); RBC Urine RARE /hpf (0-2); Squamous Epithelial Cell Urine 0-4 /hpf (0-5); Urine Appearance Clear (CLEAR); Urine Color Yellow (Yellow); Urobilinogen Urine Norm (Negative); pH Urine 6 (5-7)
[2023-06-19 16:19] LABS: Add Urine Culture? No; Bacteria Urine TRACE /hpf
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
[2023-06-19] MEDS: dexamethasone 10 mg/mL INJ IM (16:56)
[2023-06-19] MEDS: ketorolac 60 mg/2 mL INJ IM (16:56)
[2023-06-19 17:39] LABS: Troponin 5 2HR Delta 0.00001 ABS# (0-10)
== END 2023-06-19 17:13 | disposition home or self-care (01) ==
PROVIDERS: Emergency Medicine; Emergency Provider Internal Medicine
DX: M94.0 Chondrocostal junction syndrome [Tietze] (principal); R07.89 Other chest pain
CPT/HCPCS: 71045; 80053; 81001; 81025; 84484; 85025; 93005; 96372; 99284; J1100; J1885

== ENCOUNTER 2023-08-24 11:37 | Emergency (ER) | payer SELFPAY ==
[2023-08-24 11:51] VITALS: BP 114/73; PULSE 94; RESP 16; TEMP 37.3; O2SAT 99; BMI 24.7
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
[2023-08-24 13:19] LABS: Basophils % 0.3 %; Eosinophils # 0.1 10^3/uL (0.0-0.8); Eosinophils % 0.7 %; Hematocrit 43.5 % (36-47); Lymphocytes # 2.2 10^3/uL (0.8-4.8); Lymphocytes % 17.9 %; Mean Corpuscular HGB Conc 33.3 g/dL (30-55); Mean Corpuscular Hemoglobin 29.7 pg (27-33); Mean Platelet Volume 10.8 fL (7.4-10.4); Monocytes # 0.8 10^3/uL (0.2-0.9); Monocytes % 6.6 %; Neutrophils # 9.03 10^3/uL (1.8-7.7); Neutrophils % 74.1 %; Nucleated Red Blood Cells % 0 %; Platelet Count 372 10^3/cmm (157-399); Red Blood Count 4.89 10^6/uL (3.85-5.65); Red Cell Distribution Width 12.3 % (12.1-15.1); White Blood Count 12.19 10^3/uL (3.29-11.43)
[2023-08-24 13:39] LABS: Alanine Aminotransferase 13 U/L (0-33); Albumin Level 4.8 g/dL (3.5-5.2); Alkaline Phosphatase 71 U/L (35-105); Anion Gap 20.7 (5-19); Aspartate Amino Transferase 21 U/L (0-32); Blood Urea Nitrogen 11 mg/dL (6-20); Calcium 9.4 mg/dL (8.5-10.5); Carbon Dioxide 20 mmol/L (22-29); Chloride 101 mmol/L (98-107); Globulin 3.9 g/dL (1.3-4.6); Glucose 80 mg/dL (65-115); Osmolality Calculated 284 mOsm/kg (285-295); Potassium 3.7 mmol/L (3.5-5.1); Sodium 138 mmol/L (136-145); Total Bilirubin 0.3 mg/dL (0.15-1.2); Total Protein 8.7 g/dL (6.6-8.7)
[2023-08-24] MEDS: ketorolac 30 mg/mL INJ IVP (14:07)
[2023-08-24] MEDS: sodium chloride 0.9% 1,000 ML 999 ML IV ×2 (14:09→18:36)
[2023-08-24 14:10] VITALS: BP 128/88; PULSE 80; RESP 18; O2SAT 100
--- NOTE | 2023-08-24 14:13 | US_ITS ---
WS: [id number] ULTRASOUND EARLY TECHNIQUE: Transabdominal sonography of the pelvis was performed. Followed by transvaginal sonography to better evaluate the uterus and ovaries. CLINICAL INFORMATION: Confirmed intrauterine LMP: 07/13/2023 Beta hCG: Unknown. G4, P2 COMPARISON: None. FINDINGS: UTERUS AND GESTATIONAL SAC Intrauterine gestations: Intrauterine gestational sac with suspected yolk sac. No visualized pole in this very early pre gnancy. No detected cardiac activity. Recommend short interval follow-up. Gestational sac measures 0.98 cm compatible with 5 weeks 5 days gestation No evidence of subchorionic hemorrhage. OVARIES Right ovary: Normal. Left ovary: Normal FREE FLUID Present IMPRESSION: 1. Intrauterine gestational sac with suspected yolk sac. No pole visualized in this early gest ation. Recommend short interval follow-up and correlation with beta-hCG. 2. No evidence of subchorionic hemorrhage. 3. Cervix is long and closed 4. Small amount of free fluid in the cul-de-sac 5. Normal ovaries and adnexa.
== END 2023-08-24 18:37 | disposition home or self-care (01) ==
PROVIDERS: Emergency Medicine; Emergency Provider Family Medicine
DX: O26.891 Other specified pregnancy related conditions, first trimester (principal); R55 Syncope and collapse; Z3A.01 Less than 8 weeks gestation of pregnancy
CPT/HCPCS: 76801; 76817; 80053; 84702; 85025; 96361; 96374; 99284; J1885; J7030

== ENCOUNTER → 2023-09-06 08:22 | Outpatient (BNVA) | payer BC, SELFPAY | PROVIDERS: Visit Provider Nurse Practitioner Women's Health | DX: N92.6 Irregular menstruation, unspecified (principal) | CPT/HCPCS: 81025 ==

== ENCOUNTER → 2023-09-07 08:33 | Outpatient (BNVA) | payer BC, SELFPAY | PROVIDERS: Visit Provider Nurse Practitioner Women's Health | DX: Z36.87 Encounter for antenatal screening for uncertain dates (principal) | CPT/HCPCS: 76801 ==

== ENCOUNTER → 2023-09-12 15:49 | Outpatient (BNVA) | payer BC, SELFPAY | PROVIDERS: Visit Provider Nurse Practitioner Women's Health | DX: R30.0 Dysuria (principal) | CPT/HCPCS: 84315; 87086 ==

== ENCOUNTER 2023-09-15 14:15 | Emergency (ER) | payer BC, SELFPAY ==
[2023-09-15 14:19] VITALS: BP 129/86; PULSE 75; RESP 18; TEMP 36.9; O2SAT 97
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
[2023-09-15 15:41] LABS: Basophils % 0.3 %; Eosinophils # 0.1 10^3/uL (0.0-0.8); Eosinophils % 0.8 %; Hematocrit 38.3 % (36-47); Lymphocytes # 2.1 10^3/uL (0.8-4.8); Lymphocytes % 17.5 %; Mean Corpuscular HGB Conc 33.4 g/dL (30-55); Mean Corpuscular Hemoglobin 29.3 pg (27-33); Mean Corpuscular Volume 87.6 fl (85-98); Mean Platelet Volume 10.6 fL (7.4-10.4); Monocytes # 0.9 10^3/uL (0.2-0.9); Monocytes % 7.2 %; Neutrophils # 8.69 10^3/uL (1.8-7.7); Neutrophils % 73.9 %; Nucleated Red Blood Cells % 0 %; Platelet Count 341 10^3/cmm (157-399); Red Blood Count 4.37 10^6/uL (3.85-5.65); Red Cell Distribution Width 12.6 % (12.1-15.1); White Blood Count 11.75 10^3/uL (3.29-11.43)
[2023-09-15] MEDS: pantoprazole 40 mg SDV 80 MG IVP (15:44)
[2023-09-15] MEDS: sodium chloride 0.9% 1,000 ML 999 ML IV (15:44)
[2023-09-15 15:55] LABS: Add Urine Microscopic? NO; Charge for UA Resulting for Rev
[2023-09-15 15:58] LABS: Bilirubin Urine Neg (Negative); Blood Urine Neg (Negative); Glucose Urine UA Norm (Normal); Ketones Urine Negative (Negative); Leukocyte Esterase Urine Negative (Negative); Nitrate Urine Negative (Negative); Protein Urine Neg (Negative); Specific Gravity, Urine 1.015 (1.005-1.030); Urine Appearance Clear (CLEAR); Urine Color Yellow (Yellow); Urobilinogen Urine Norm (Negative); pH Urine 6 (5-7)
[2023-09-15 16:02] LABS: Alanine Aminotransferase 24 U/L (0-33); Albumin Level 4.3 g/dL (3.5-5.2); Alkaline Phosphatase 73 U/L (35-105); Anion Gap 15.9 (5-19); Aspartate Amino Transferase 28 U/L (0-32); Blood Urea Nitrogen 9 mg/dL (6-20); Calcium 8.9 mg/dL (8.5-10.5); Carbon Dioxide 21 mmol/L (22-29); Chloride 104 mmol/L (98-107); Creatinine Clr Calc Pharmacy 128.6164; Globulin 3.4 g/dL (1.3-4.6); Glomerular Filtration Rate 121.8 mL/min (90-130); Glucose 94 mg/dL (65-115); Osmolality Calculated 282 mOsm/kg (285-295); Potassium 3.9 mmol/L (3.5-5.1); Sodium 137 mmol/L (136-145); Total Bilirubin 0.2 mg/dL (0.15-1.2); Total Protein 7.7 g/dL (6.6-8.7)
[2023-09-15 16:36] VITALS: BP 129/86; PULSE 75; RESP 18; TEMP 36.9; O2SAT 97
== END 2023-09-15 16:37 | disposition home or self-care (01) ==
PROVIDERS: Emergency Provider Family Medicine
DX: O26.891 Other specified pregnancy related conditions, first trimester (principal); K22.6 Gastro-esophageal laceration-hemorrhage syndrome; Z3A.09 9 weeks gestation of pregnancy
CPT/HCPCS: 36415; 80053; 81003; 85025; 96361; 96374; 99284; C9113; J7030

== ENCOUNTER → 2023-09-19 07:57 | Outpatient (BNVA) | payer BC, SELFPAY | PROVIDERS: Visit Provider Nurse Practitioner Women's Health | DX: Z34.90 Encounter for supervision of normal pregnancy, unspecified, unspecified trimester (principal) | CPT/HCPCS: 81000 ==

== ENCOUNTER → 2023-10-06 07:54 | Outpatient (BNVA) | payer BC, SELFPAY | PROVIDERS: Visit Provider Obstetrics & Gynecology | DX: Z34.80 Encounter for supervision of other normal pregnancy, unspecified trimester (principal) | CPT/HCPCS: 80307; 84315; 85025; 86592; 86762; 86803; 86850; 86900; 87086; 87340; 87491; 87591; 87806; 88175 ==

== ENCOUNTER 2023-11-05 16:38 | Emergency (ER) | payer BC, SELFPAY ==
[2023-11-05 16:51] VITALS: BP 114/77; PULSE 71; RESP 16; TEMP 36.9; O2SAT 98; BMI 24.0
[2023-11-05 16:57] VITALS: BP 129/85; PULSE 79; RESP 16; O2SAT 100
--- NOTE | 2023-11-05 17:00 | USR_ITS ---
PROCEDURE INFORMATION: Exam: US , Limited Exam date and time: 11/05/2023 5:12 PM Age: 28 years old Clinical indication: complicated by abdominal or pelvic pain; Lower; Second trimester (14 weeks 0 days to 27 weeks 6 days); Gestational age or lmp: 16w3d; ; Additional info: Fall LABS AND CLINICAL REPORTS: Gestational age (Established): 16 w 3 d Estimated due date (Established): 04/18/2024 TECHNIQUE: Imaging protocol: Real-time ultrasound of the maternal uterus with image documentation. Exam focused on the clinical indication. COMPARISON: US OB <= 14 weeks fetus [id number] 09/07/2023 8:39 AM FINDINGS: Gestation: Single live intrauterine . heart rate: 163 bpm Placenta: Placenta is anterior without definite abnormality, however, patient was tender in this area. Amniotic fluid index: Amniotic fluid index appears subjectively within normal limits. MATERNAL: Cervix: Cervical length measures 0 cm. US/US OB limited [id number] IMPRESSION: 1. Single live intrauterine . 2. Placenta is anterior without definite abnormality, however, patient was tender in this area. Consider short-term interval follow-up exam as clinically indicated.
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
[2023-11-05 17:21] LABS: Add Urine Microscopic? NO; Charge for UA Resulting for Rev
[2023-11-05 17:29] LABS: Urine Appearance Clear (CLEAR); Urine Color Yellow (Yellow)
[2023-11-05 17:30] LABS: Bilirubin Urine Neg (Negative); Blood Urine Neg (Negative); Glucose Urine UA Norm (Normal); Ketones Urine Negative (Negative); Leukocyte Esterase Urine Negative (Negative); Nitrate Urine Negative (Negative); Protein Urine Neg (Negative); Specific Gravity, Urine 1.025 (1.005-1.030); Urobilinogen Urine Norm (Negative); pH Urine 5 (5-7)
[2023-11-05 17:38] LABS: Basophils % 0.3 %; Eosinophils # 0.1 10^3/uL (0.0-0.8); Eosinophils % 0.8 %; Hematocrit 36.7 % (36-47); Lymphocytes # 1.7 10^3/uL (0.8-4.8); Lymphocytes % 17.3 %; Mean Corpuscular HGB Conc 33.2 g/dL (30-55); Mean Corpuscular Hemoglobin 29.8 pg (27-33); Mean Corpuscular Volume 89.5 fl (85-98); Mean Platelet Volume 10.5 fL (7.4-10.4); Monocytes # 0.8 10^3/uL (0.2-0.9); Monocytes % 7.6 %; Neutrophils # 7.32 10^3/uL (1.8-7.7); Neutrophils % 73.7 %; Nucleated Red Blood Cells % 0 %; Platelet Count 309 10^3/cmm (157-399); Red Cell Distribution Width 14.1 % (12.1-15.1); White Blood Count 9.93 10^3/uL (3.29-11.43)
[2023-11-05] MEDS: metoclopramide 5 mg/mL SDV 2 mL 10 MG IVP (17:46)
[2023-11-05] MEDS: sodium chloride 0.9% 500 ML 999 ML IV (17:46)
[2023-11-05 18:13] LABS: Alanine Aminotransferase 10 U/L (0-33); Alkaline Phosphatase 60 U/L (35-105); Anion Gap 14.4 (5-19); Aspartate Amino Transferase 18 U/L (0-32); Blood Urea Nitrogen 12 mg/dL (6-20); Calcium 9.6 mg/dL (8.5-10.5); Carbon Dioxide 22 mmol/L (22-29); Chloride 103 mmol/L (98-107); Creatinine Clr Calc Pharmacy 151.0445; Globulin 3.6 g/dL (1.3-4.6); Glomerular Filtration Rate 149.1 mL/min (90-130); Glucose 87 mg/dL (65-115); Osmolality Calculated 281 mOsm/kg (285-295); Potassium 3.4 mmol/L (3.5-5.1); Sodium 136 mmol/L (136-145); Total Bilirubin 0.2 mg/dL (0.15-1.2); Total Protein 7.6 g/dL (6.6-8.7)
[2023-11-05 18:29] VITALS: BP 127/86; PULSE 78; RESP 16; TEMP 36.9; O2SAT 100
== END 2023-11-05 18:32 | disposition home or self-care (01) ==
PROVIDERS: Emergency Provider Nurse Practitioner Family
DX: O26.892 Other specified pregnancy related conditions, second trimester (principal); R51.9 Headache, unspecified; Z3A.15 15 weeks gestation of pregnancy; W18.30XA Fall on same level, unspecified, initial encounter
CPT/HCPCS: 76815; 80053; 81003; 84702; 85025; 96374; 99284; J2765; J7040

== ENCOUNTER 2023-11-28 19:38 | Emergency (ER) | payer BC, SELFPAY ==
[2023-11-28 19:51] VITALS: BP 119/78; PULSE 92; RESP 16; TEMP 37.1; O2SAT 98
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
[2023-11-28 20:31] LABS: Basophils % 0.2 %; Eosinophils # 0.1 10^3/uL (0.0-0.8); Eosinophils % 0.7 %; Hematocrit 31.5 % (36-47); Lymphocytes # 2.1 10^3/uL (0.8-4.8); Lymphocytes % 24.3 %; Mean Corpuscular HGB Conc 33.3 g/dL (30-55); Mean Platelet Volume 10.6 fL (7.4-10.4); Monocytes # 0.6 10^3/uL (0.2-0.9); Monocytes % 7.2 %; Neutrophils # 5.91 10^3/uL (1.8-7.7); Neutrophils % 67.5 %; Nucleated Red Blood Cells % 0 %; Platelet Count 292 10^3/cmm (157-399); Red Cell Distribution Width 14.4 % (12.1-15.1); White Blood Count 8.76 10^3/uL (3.29-11.43)
--- NOTE | 2023-11-28 20:41 | ECG_ITS ---
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 Measurements Intervals [place] Rate: 70 P: 9 [place]: 147 QRS: 64 QRSD: 97 T: 41 QT: 377 QTc: 408 Interpretive Statements SINUS RHYTHM POSSIBLE RIGHT VENTRICULAR CONDUCTION DELAY [RSR (QR) IN V1/V2] Compared to ECG 06/19/2023 14:09:37 Incomplete right bundle-branch block no longer present Electronically Signed On 11-29-2023 16:25:27 CDT by Mode Sharma M.D. [id number]
[2023-11-28] MEDS: sodium chloride 0.9% 1,000 ML 999 ML IV (20:45)
[2023-11-28 20:46] LABS: Alanine Aminotransferase < 5 U/L (0-33); Albumin Level 3.5 g/dL (3.5-5.2); Alkaline Phosphatase 69 U/L (35-105); Anion Gap 11.6 (5-19); Aspartate Amino Transferase 19 U/L (0-32); Blood Urea Nitrogen 5 mg/dL (6-20); Calcium 8.2 mg/dL (8.5-10.5); Carbon Dioxide 23 mmol/L (22-29); Chloride 106 mmol/L (98-107); Creatinine Clr Calc Pharmacy 148.6026; Globulin 3.4 g/dL (1.3-4.6); Glomerular Filtration Rate 149.1 mL/min (90-130); Glucose 111 mg/dL (65-115); Osmolality Calculated 282 mOsm/kg (285-295); Potassium 3.6 mmol/L (3.5-5.1); Sodium 137 mmol/L (136-145); Total Bilirubin 0.2 mg/dL (0.15-1.2); Total Protein 6.9 g/dL (6.6-8.7)
[2023-11-28 20:56] VITALS: BP 114/73; RESP 17; O2SAT 100
[2023-11-28 21:34] LABS: Glucose Urine UA Norm (Normal); Ketones Urine 1+ (Negative); Protein Urine Neg (Negative); Specific Gravity, Urine 1.015 (1.005-1.030); Urine Appearance Hazy (CLEAR); Urine Color Yellow (Yellow); pH Urine 6.5 (5-7)
[2023-11-28 21:35] LABS: Add Urine Microscopic? YES; Bilirubin Urine 1+ (Negative); Blood Urine Neg (Negative); Leukocyte Esterase Urine Trace (Negative); Nitrate Urine Negative (Negative); RBC Urine 0-4 /hpf (0-2); Urobilinogen Urine 4 mg/dL (Negative); WBC Urine 0-4 /hpf (0-5)
[2023-11-28 21:36] LABS: Add Urine Culture? No; Bacteria Urine 3+ /hpf; Mucus Urine 2+ /hpf; Squamous Epithelial Cell Urine 25-40 /hpf (0-5)
[2023-11-28] MEDS: nitrofurantoin SR (BID) 100 mg Capsule PO (22:09)
[2023-11-28 22:35] VITALS: BP 100/64; PULSE 76; RESP 13; O2SAT 100
== END 2023-11-28 22:38 | disposition home or self-care (01) ==
PROVIDERS: Emergency Provider Emergency Medicine
DX: O26.892 Other specified pregnancy related conditions, second trimester (principal); R55 Syncope and collapse; O23.12 Infections of bladder in pregnancy, second trimester; O9A.212 Injury, poisoning and certain other consequences of external causes complicating pregnancy, second trimester; S80.212A Abrasion, left knee, initial encounter; Z3A.19 19 weeks gestation of pregnancy; W18.39XA Other fall on same level, initial encounter
CPT/HCPCS: 36415; 80053; 81001; 85025; 93005; 96360; 96361; 99285; J7030

== ENCOUNTER 2024-01-10 11:29 | Outpatient (CLI) | payer BC, SELFPAY ==
[2024-01-10] VITALS (7 sets, daily range): BP systolic 105–119; BP diastolic 53–77; PULSE 69–94; RESP 16; BMI 24.8
--- NOTE | 2024-01-10 12:04 | US_ITS ---
WS: [id number] RIGHT UPPER QUADRANT ULTRASOUND HISTORY: UPPER GASTRIC PAIN COMPARISON: 04/23/2022 Liver: 12.5 cm in length. Normal size liver and echogenicity. No bile duct dilatation or mass. Portal Vein: Normal hepatopetal flow with monophasic waveform. Gallbladder: Contracted. Nonfasting. CBD: Not visualized but not does not appear dilated. Pancreas: Obscured. Right kidney: 11.7 cm in length. Normal size kidney. There is mild hydronephrosis. Aorta and IVC: Unremarkable abdominal aorta and IVC. Gravid uterus is noted. US/US gall bladder [id number] IMPRESSION: 1. Mild RIGHT hydronephrosis. May be secondary to the gravid state. 2. Contracted gallbladder with no stones identified. Patient is nonfasting.
[2024-01-10 12:23] LABS: Bilirubin Urine Neg (Negative); Blood Urine Neg (Negative); Glucose Urine UA Norm (Normal); Ketones Urine 1+ (Negative); Leukocyte Esterase Urine 1+ (Negative); Nitrate Urine Negative (Negative); Protein Urine Neg (Negative); Urine Appearance Slightly Cloudy (CLEAR); Urine Color Yellow (Yellow); Urobilinogen Urine Norm (Negative); pH Urine 5 (5-7)
[2024-01-10] MEDS: lactated ringers 1,000 ML 999 ML IV (12:30)
--- NOTE | 2024-01-10 12:32 | PC.NURSE ---
PATIENT HERE WITH C/O FATIGUE, DIZZINESS AND SPOTTY VISION, AND UPPER GASTRIC PAIN. PT STATES THAT SHE PASSED OUT MONDAY NIGHT AND MONDAY AND SINCE THEN SHE HAS BEEN SEEING SPOTS AND JUST DOESN'T FEEL GOOD. PLUS SHE SAID SINCE MONDAY SHE HAS THROWN UP PROBABLY 2 TIMES A DAY. STATES THAT SINCE SHE PASSED OUT MONDAY ALL THESE THINGS HAS BEEN OCCURRING. SHE STATED THAT SHE CALLED HER DOCTORS OFFICE ON MONDAY AND THEN THEY CALLED HER BACK THIS AM AND TOLD HER TO COME IN AND BE CHECKED OUT AND SHE DID NOT FEEL COMFORTABLE DRIVING HERSELF TO [facility] HOME AND SHE STATES THAT SHE HAD NO ONE TO TAKE HER DOWN THERE. HER NEXT APPOINTMENT WITH DR. SOLER IS IN 3 WEEKS, LAST SAW HIM A WEEK AGO MONDAY. PATIENT STATES THAT SHE HAD APPENDIX REMOVED AT AGE 16 BUT NO OTHER SURGERIES OR HEALTH ISSUES.
[2024-01-10 12:33] LABS: Basophils % 0.2 %; Eosinophils # 0.1 10^3/uL (0.0-0.8); Eosinophils % 0.9 %; Hematocrit 32.5 % (36-47); Lymphocytes # 1.6 10^3/uL (0.8-4.8); Lymphocytes % 19.8 %; Mean Corpuscular HGB Conc 32.9 g/dL (30-55); Mean Corpuscular Volume 88.1 fl (85-98); Mean Platelet Volume 10.8 fL (7.4-10.4); Monocytes # 0.7 10^3/uL (0.2-0.9); Monocytes % 8.9 %; Neutrophils # 5.64 10^3/uL (1.8-7.7); Neutrophils % 69.8 %; Nucleated Red Blood Cells % 0 %; Platelet Count 333 10^3/cmm (157-399); Red Blood Count 3.69 10^6/uL (3.85-5.65); Red Cell Distribution Width 12.7 % (12.1-15.1); White Blood Count 8.08 10^3/uL (3.29-11.43)
[2024-01-10 12:35] LABS: Urine Creatinine 57 mg/dL (28-217); Urine Protein Random 6 mg/dL
[2024-01-10 12:40] LABS: UPRO/UCREAT Ratio 0.11 mg/mg CR
[2024-01-10 12:56] LABS: Alanine Aminotransferase < 5 U/L (0-33); Albumin Level 3.6 g/dL (3.5-5.2); Alkaline Phosphatase 76 U/L (35-105); Anion Gap 14.9 (5-19); Aspartate Amino Transferase 13 U/L (0-32); Blood Urea Nitrogen 5 mg/dL (6-20); Calcium 8.5 mg/dL (8.5-10.5); Carbon Dioxide 21 mmol/L (22-29); Chloride 108 mmol/L (98-107); Creatinine Clr Calc Pharmacy 191.5525; Glomerular Filtration Rate 192.9 mL/min (90-130); Glucose 85 mg/dL (65-115); Lipase 24 U/L (13-60); Osmolality Calculated 285 mOsm/kg (285-295); Potassium 4.9 mmol/L (3.5-5.1); Sodium 139 mmol/L (136-145); Total Bilirubin 0.2 mg/dL (0.15-1.2); Total Protein 6.6 g/dL (6.6-8.7); Uric Acid 3.5 mg/dL (2.4-5.7)
[2024-01-10 12:59] LABS: Add Urine Culture? No; Bacteria Urine TRACE /hpf; RBC Urine 0-4 /hpf (0-2); Squamous Epithelial Cell Urine 25-40 /hpf (0-5); WBC Urine 0-4 /hpf (0-5)
== END 2024-01-10 14:20 | disposition home or self-care (01) ==
LOC: OPOB 11:36 → OBGYN 11:37
PROVIDERS: Visit Provider Family Medicine
DX: O26.899 Other specified pregnancy related conditions, unspecified trimester (principal); Z3A.00 Weeks of gestation of pregnancy not specified; R53.83 Other fatigue; H53.9 Unspecified visual disturbance; R42 Dizziness and giddiness
CPT/HCPCS: 36415; 59025; 76705; 80053; 81001; 82570; 83690; 84156; 84550; 85025; 86141; 99211; J7120

== ENCOUNTER 2024-01-26 03:50 | Outpatient (CLI) | payer BC, SELFPAY ==
[2024-01-26] VITALS (15 sets, daily range): BP systolic 106–112; BP diastolic 64–72; PULSE 69–100; RESP 14; O2SAT 97–98; BMI 25.3
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
== END 2024-01-26 05:20 | disposition home or self-care (01) ==
LOC: OPOB 04:02 → OBGYN 04:02
PROVIDERS: Visit Provider Obstetrics & Gynecology
DX: O26.892 Other specified pregnancy related conditions, second trimester (principal); Z3A.28 28 weeks gestation of pregnancy; R55 Syncope and collapse
CPT/HCPCS: 59025; 99211

== ENCOUNTER 2024-01-26 05:21 | Emergency (ER) | payer BC, SELFPAY ==
[2024-01-26 05:25] VITALS: BP 111/74; PULSE 76; RESP 18; TEMP 37.2; O2SAT 100; BMI 25.3
--- NOTE | 2024-01-26 05:28 | ECG_ITS ---
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 Measurements Intervals [place] Rate: 76 P: 3 IA: 142 QRS: 28 QRSD: 106 T: 21 QT: 375 QTc: 422 Interpretive Statements SINUS RHYTHM INCOMPLETE RIGHT BUNDLE BRANCH BLOCK Compared to ECG 11/28/2023 20:41:57 No significant change Electronically Signed On 01-26-2024 8:50:46 CDT by Tino Arambula M.D. [id number]
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
[2024-01-26] MEDS: sodium chloride 0.9% 1,000 ML 999 ML IV ×2 (05:45→07:05)
[2024-01-26 05:51] LABS: Basophils % 0.4 %; Eosinophils # 0.1 10^3/uL (0.0-0.8); Eosinophils % 0.7 %; Hematocrit 32.4 % (36-47); Lymphocytes % 19.6 %; Mean Corpuscular HGB Conc 32.4 g/dL (30-55); Mean Corpuscular Hemoglobin 28.7 pg (27-33); Mean Corpuscular Volume 88.5 fl (85-98); Mean Platelet Volume 10.7 fL (7.4-10.4); Monocytes # 0.8 10^3/uL (0.2-0.9); Monocytes % 8.2 %; Neutrophils # 7.29 10^3/uL (1.8-7.7); Neutrophils % 70.8 %; Nucleated Red Blood Cells % 0 %; Platelet Count 325 10^3/cmm (157-399); Red Blood Count 3.66 10^6/uL (3.85-5.65); Red Cell Distribution Width 12.6 % (12.1-15.1); White Blood Count 10.28 10^3/uL (3.29-11.43)
[2024-01-26 06:02] VITALS: BP 111/60; BP 115/69; BP 122/67; PULSE 70; PULSE 71; PULSE 76
[2024-01-26 06:04] VITALS: BP 107/69; PULSE 75; O2SAT 100
[2024-01-26 06:09] LABS: Troponin(5th) Baseline < 6 ng/L (0-10)
[2024-01-26 06:10] LABS: Lactic Sepsis W/Reflex 0.9 mmol/L (0.5-2.2)
[2024-01-26 06:15] LABS: Add Urine Culture? No; Bacteria Urine 2+ /hpf; Bilirubin Urine 1+ (Negative); Blood Urine Neg (Negative); Calcium Oxalate Crystals Urine 0-4 /hpf; Glucose Urine UA Norm (Normal); Ketones Urine 1+ (Negative); Leukocyte Esterase Urine 1+ (Negative); Mucus Urine 3+ /hpf; Nitrate Urine Negative (Negative); Protein Urine Neg (Negative); RBC Urine 0-4 /hpf (0-2); Specific Gravity, Urine 1.025 (1.005-1.030); Squamous Epithelial Cell Urine 15-25 /hpf (0-5); Urine Appearance Slightly Cloudy (CLEAR); Urine Color Dark Yellow (Yellow); Urobilinogen Urine 1 mg/dL (Negative); pH Urine 5 (5-7)
[2024-01-26 06:22] LABS: Alanine Aminotransferase 7 U/L (0-33); Albumin Level 3.5 g/dL (3.5-5.2); Alkaline Phosphatase 80 U/L (35-105); Anion Gap 17.6 (5-19); Aspartate Amino Transferase 17 U/L (0-32); Blood Urea Nitrogen 6 mg/dL (6-20); Calcium 8.6 mg/dL (8.5-10.5); Carbon Dioxide 17 mmol/L (22-29); Chloride 106 mmol/L (98-107); Creatinine Clr Calc Pharmacy 154.4629; Globulin 3.2 g/dL (1.3-4.6); Glomerular Filtration Rate 149.1 mL/min (90-130); Glucose 83 mg/dL (65-115); Osmolality Calculated 281 mOsm/kg (285-295); Potassium 3.6 mmol/L (3.5-5.1); Sodium 137 mmol/L (136-145); Total Bilirubin 0.2 mg/dL (0.15-1.2); Total Protein 6.7 g/dL (6.6-8.7)
[2024-01-26 06:30] VITALS: BP 117/72; PULSE 76; O2SAT 100
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
[2024-01-26 07:30] VITALS: BP 93/44; PULSE 76; O2SAT 99
[2024-01-26 08:14] VITALS: BP 104/56; PULSE 79; O2SAT 100
== END 2024-01-26 08:24 | disposition home or self-care (01) ==
PROVIDERS: Emergency Medicine; Emergency Provider Family Medicine
DX: O26.893 Other specified pregnancy related conditions, third trimester (principal); O99.343 Other mental disorders complicating pregnancy, third trimester; F41.8 Other specified anxiety disorders; O9A.313 Physical abuse complicating pregnancy, third trimester; S67.21XA Crushing injury of right hand, initial encounter; Z3A.28 28 weeks gestation of pregnancy; Y07.010 Husband, current, perpetrator of maltreatment and neglect
CPT/HCPCS: 73130; 80053; 81001; 83605; 84484; 85025; 93005; 96360; 96361; 99285; J7030

== ENCOUNTER 2024-03-15 14:45 | Outpatient (CLI) | payer BC, SELFPAY ==
[2024-03-15 15:04] VITALS: BP 132/79; PULSE 93
[2024-03-15 15:09] VITALS: TEMP 36.7
[2024-03-15 15:10] VITALS: BMI 25.8
[2024-03-15 15:20] VITALS: BP 114/65; PULSE 77
== END 2024-03-15 15:38 | disposition home or self-care (01) ==
LOC: OPOB 14:49 → OBGYN 14:57
PROVIDERS: Visit Provider Obstetrics & Gynecology
DX: O36.8190 Decreased fetal movements, unspecified trimester, not applicable or unspecified (principal); Z3A.00 Weeks of gestation of pregnancy not specified
CPT/HCPCS: 59025; 99211

== ENCOUNTER 2024-03-30 23:50 | Outpatient (CLI) | payer BC, SELFPAY ==
[2024-03-31] VITALS (19 sets, daily range): BP systolic 110–132; BP diastolic 66–89; PULSE 60–75; TEMP 35.7–35.9; BMI 26.5
[2024-03-31 01:04] LABS: Actim Prom Negative
[2024-03-31] MEDS: acetaminophen 325 mg Tablet 650 MG PO (02:40)
[2024-03-31 02:54] LABS: Add Urine Microscopic? YES; Bilirubin Urine 1+ (Negative); Blood Urine Neg (Negative); Glucose Urine UA Norm (Normal); Ketones Urine Negative (Negative); Leukocyte Esterase Urine Negative (Negative); Nitrate Urine Negative (Negative); Protein Urine Trace (Negative); RBC Urine 0-4 /hpf (0-2); Urine Appearance Slightly Cloudy (CLEAR); Urine Color Yellow (Yellow); Urobilinogen Urine 1 mg/dL (Negative); WBC Urine 0-4 /hpf (0-5); pH Urine 5 (5-7)
[2024-03-31 02:55] LABS: Add Urine Culture? No; Bacteria Urine 1+ /hpf; Calcium Oxalate Crystals Urine 0-4 /hpf; Mucus Urine 2+ /hpf
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
== END 2024-03-31 07:42 | disposition home or self-care (01) ==
LOC: OPOB 23:52 → OBGYN 23:58
PROVIDERS: Visit Provider Obstetrics & Gynecology
DX: Z34.83 Encounter for supervision of other normal pregnancy, third trimester (principal); Z3A.37 37 weeks gestation of pregnancy
CPT/HCPCS: 59025; 81001; 84112; 99211; G0378

== ENCOUNTER 2024-04-10 10:50 | Outpatient (CLI) | payer BC, SELFPAY ==
[2024-04-10 10:50] VITALS: BMI 25.7
[2024-04-10 11:04] VITALS: BP 118/77; PULSE 99
[2024-04-10 11:19] VITALS: BP 122/80; PULSE 97
[2024-04-10 11:34] VITALS: BP 114/78; PULSE 113
[2024-04-10 11:49] VITALS: BP 113/71; PULSE 75
[2024-04-10 11:59] VITALS: BP 113/71; PULSE 75
== END 2024-04-10 11:59 | disposition home or self-care (01) ==
LOC: OPOB 10:56 → OBGYN 10:57
PROVIDERS: Visit Provider Family Medicine
DX: O26.899 Other specified pregnancy related conditions, unspecified trimester (principal); Z3A.00 Weeks of gestation of pregnancy not specified; R10.9 Unspecified abdominal pain
CPT/HCPCS: 59025; 83986; 99211

== ENCOUNTER 2024-04-14 13:03 | Emergency (ER) | payer BC, SELFPAY ==
[2024-04-14 13:10] VITALS: BP 123/83; PULSE 72; RESP 16; TEMP 37; O2SAT 98; BMI 25.0
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
[2024-04-14 16:18] LABS: Basophils # 0.1 10^3/uL (0.0-0.1); Basophils % 0.5 %; Eosinophils # 0.2 10^3/uL (0.0-0.8); Eosinophils % 2.1 %; Hematocrit 25.6 % (36-47); Lymphocytes # 2.4 10^3/uL (0.8-4.8); Lymphocytes % 24.3 %; Mean Corpuscular HGB Conc 30.9 g/dL (30-55); Mean Corpuscular Hemoglobin 26.1 pg (27-33); Mean Corpuscular Volume 84.5 fl (85-98); Mean Platelet Volume 9.9 fL (7.4-10.4); Monocytes # 0.8 10^3/uL (0.2-0.9); Monocytes % 7.9 %; Neutrophils # 6.43 10^3/uL (1.8-7.7); Neutrophils % 64.1 %; Nucleated Red Blood Cells % 0.4 %; Platelet Count 311 10^3/cmm (157-399); Red Blood Count 3.03 10^6/uL (3.85-5.65); Red Cell Distribution Width 14.8 % (12.1-15.1); White Blood Count 10.03 10^3/uL (3.29-11.43)
[2024-04-14 16:34] LABS: Anion Gap 10.8 (5-19); Blood Urea Nitrogen 10 mg/dL (6-20); Calcium 7.5 mg/dL (8.5-10.5); Carbon Dioxide 26 mmol/L (22-29); Chloride 105 mmol/L (98-107); Glomerular Filtration Rate 192.9 mL/min (90-130); Glucose 85 mg/dL (65-115); Osmolality Calculated 284 mOsm/kg (285-295); Potassium 3.8 mmol/L (3.5-5.1); Sodium 138 mmol/L (136-145)
[2024-04-14 16:38] VITALS: BP 121/74; PULSE 77; O2SAT 99
[2024-04-14 16:46] VITALS: BP 136/75; PULSE 77; O2SAT 99
== END 2024-04-14 16:48 | disposition home or self-care (01) ==
PROVIDERS: Emergency Medicine; Emergency Provider Nurse Practitioner Family
DX: O72.1 Other immediate postpartum hemorrhage (principal)
CPT/HCPCS: 36415; 80048; 85025; 99283